=== PATIENT | male | born 1960 | race Caucasian/White ===

== ENCOUNTER → 2016-10-27 | Outpatient (CLI) | payer BC, OTHER ==
[~2016-10-27] MED LIST: DOXA1TAB71 PO; NORCOTAB PO; PROT1TAB2 PO; SIMV40TA2 PO
--- NOTE | 2016-10-27 14:46 | REP ---
LEFT FOOT, FOUR VIEWS: HISTORY: Contusion. There is no acute fracture or dislocation. The joint spaces are normal in appearance. IMPRESSION: There is no acute fracture or dislocation. Signed by Bo Bruce MD 10/27/2016 03:01 P
== END ==
LOC: M WUC 13:34
PROVIDERS: ATTEND Physician Assistant
DX: S90.32XA Contusion of left foot, initial encounter (principal); X58.XXXA Exposure to other specified factors, initial encounter; Y92.89 Other specified places as the place of occurrence of the external cause; Y93.89 Activity, other specified; Y99.8 Other external cause status

== ENCOUNTER → 2016-11-09 | Outpatient (CLI) | payer BC, OTHER ==
[2016-11-09 08:36] LABS: MEAN CORPUSCULAR HGB CONC 33.7 g/dl (32.0-36.5); MEAN CORPUSCULAR VOLUME 88.9 fl (80.0-96.0); RED CELL DISTRIBUTION WIDTH 12.7 % (11.5-14.5); WHITE BLOOD COUNT 6.5 K/mm3 (4.0-10.0)
[2016-11-09 09:16] LABS: ALBUMIN 3.8 GM/DL (3.2-5.2); ALBUMIN/GLOBULIN RATIO 1.12 (1.00-1.93); ALKALINE PHOSPHATASE 81 U/L (45-117); ALT/SGPT 42 U/L (12-78); ANION GAP 7 MEQ/L (8-16); AST/SGOT 17 U/L (15-37); BILIRUBIN,TOTAL 0.4 MG/DL (0.2-1.0); BLOOD UREA NITROGEN 16 MG/DL (7-18); CALCIUM LEVEL 9.2 MG/DL (8.5-10.1); CARBON DIOXIDE LEVEL 30 MEQ/L (21-32); CHLORIDE LEVEL 106 MEQ/L (98-107); CHOLESTEROL LEVEL 154 MG/DL (<200); CREATININE FOR GFR 1.02 MG/DL (0.70-1.30); GLOMERULAR FILTRATION RATE > 60.0 (>56); GLUCOSE, FASTING 104 MG/DL (70-105); POTASSIUM SERUM 4.3 MEQ/L (3.5-5.1); SODIUM LEVEL 143 MEQ/L (136-145); TOTAL PROTEIN 7.2 GM/DL (6.4-8.2); TRIGLYCERIDES LEVEL 156 MG/DL (<150)
--- NOTE | 2016-11-09 11:12 | REP ---
Clinical: Hypertension and fatigue . Comparison: 06/16/2015 . Technique: PA and lateral. Findings: The mediastinum and cardiac silhouette are normal. The lung gonzalez are clear and without acute consolidation, effusion, or pneumothorax. The skeletal structures are intact and normal. Impression: 1. No acute cardiopulmonary process. Signed by Bruno King MD 11/09/2016 08:25 A
--- NOTE | 2016-11-09 16:43 | ECGEPIP ---
Stationary ECG Study [facility] Test Date: 2016-11-09 Pat Name: JOCELYNE CONWAY Department: Room: - Gender: M Steel Checker: [facility] : 1960 Requested By: Yanna Chou Order Number: [id number] Reading MD: Cesario Berger Measurements Intervals [place]ston Rate: 71 P: 22 VT: 175 QRS: 25 QRSD: 86 T: 32 QT: 376 QTc: 409 Interpretive Statements Normal sinus rhythm Normal EKG No significant change when compared to prior tracing of 06/16/2015 Electronically Signed On 11-09-2016 16:43:14 EDT by Cesario Berger
== END ==
LOC: M LAB 07:56
PROVIDERS: ATTEND Family Medicine
DX: I10 Essential (primary) hypertension (principal); R53.83 Other fatigue

== ENCOUNTER 2016-11-18 15:55 | Inpatient (IN) | payer BC, OTHER ==
[~2016-11-18] VITALS: Ht 185.4 cm; Wt 105.0 kg
[2016-11-18] MEDS ORDERED: PROT1TAB2 PO (16:11)
[2016-11-18] MEDS ORDERED: SIMV40TA2 PO (16:11)
[2016-11-18] MEDS ORDERED: MORPHINE 4 MG/ML 1ML SYRINGE IV PRN (16:15)
[2016-11-18] MEDS ORDERED: ONDANSETRON 4MG/2ML VIAL (J2405) IV ONE (16:15)
[2016-11-18] MEDS ORDERED: NS 1,000 ML IV ONE (16:15)
[2016-11-18] MEDS ORDERED: ISOVUE-370 76% 100ML VIAL (Q9967) As Ordered ONE (16:16)
[2016-11-18 16:20] LABS: VENOUS BASE EXCESS -2.7 (-2.0-2.0); VENOUS O2 SATURATION 88.2 % (60.0-80.0); VENOUS PARTIAL PRESSURE CO2 42.1 mmHg (38.0-50.0); VENOUS PARTIAL PRESSURE O2 57.1 mmHg (30.0-50.0); VENOUS TOTAL CO2 24.1 MEQ/L (24.0-28.0)
[2016-11-18 16:22] LABS: BASO # 0.1 K/mm3 (0.0-0.2); BASO % 0.4 % (0.0-1.0); EOS # 0.4 K/mm3 (0.0-0.50); EOS % 2.6 % (0.0-3.0); LARGE UNSTAINED CELL # 0.2 K/mm3 (0.0-0.4); LARGE UNSTAINED CELL % 1.5 % (0.0-4.0); LYMPH # 3.8 K/mm3 (1.5-4.5); LYMPH % 24.3 % (24.0-44.0); MEAN CORPUSCULAR HGB CONC 33.9 g/dl (32.0-36.5); MEAN CORPUSCULAR VOLUME 88.4 fl (80.0-96.0); MONO # 0.7 K/mm3 (0.0-0.8); MONO % 4.6 % (0.0-5.0); NEUTROPHILS % 66.7 % (36.0-66.0); PLATELET COUNT, AUTOMATED 282 k/mm3 (150-450); RED CELL DISTRIBUTION WIDTH 12.8 % (11.5-14.5); WHITE BLOOD COUNT 14.9 K/mm3 (4.0-10.0)
[2016-11-18 16:33] LABS: INR 0.95
[2016-11-18 16:51] LABS: ALBUMIN 3.2 GM/DL (3.2-5.2); ALBUMIN/GLOBULIN RATIO 1.14 (1.00-1.93); ALKALINE PHOSPHATASE 63 U/L (45-117); ALT/SGPT 50 U/L (12-78); AMYLASE 80 U/L (25-115); ANION GAP 12 MEQ/L (8-16); AST/SGOT 38 U/L (15-37); BILIRUBIN,DIRECT 0.1 MG/DL (0.0-0.2); BILIRUBIN,TOTAL 0.5 MG/DL (0.2-1.0); BLOOD UREA NITROGEN 16 MG/DL (7-18); CALCIUM LEVEL 8.1 MG/DL (8.5-10.1); CARBON DIOXIDE LEVEL 25 MEQ/L (21-32); CHLORIDE LEVEL 108 MEQ/L (98-107); CREATININE FOR GFR 1.02 MG/DL (0.70-1.30); GLOMERULAR FILTRATION RATE > 60.0 (>56); GLUCOSE, FASTING 125 MG/DL (70-105); POTASSIUM SERUM 3.7 MEQ/L (3.5-5.1); SODIUM LEVEL 145 MEQ/L (136-145)
[2016-11-18] MEDS ORDERED: ADACEL/BOOSTRIX VACCINE (DIPHTH/PERTUSS/ACELL/TETANUS)0.5ML SYR (90715) IM ONE (17:15)
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
[2016-11-18 17:46] LABS: METHADONE URINE NEGATIVE (NEGATIVE)
[2016-11-18] MEDS ORDERED: NS 1,000 ML IV SCH (18:00)
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
[2016-11-18] MEDS ORDERED: ceFAZolin 1GM INJ (J0690) As Ordered ONE (18:18)
[2016-11-18] MEDS ORDERED: METHYLENE BLUE 0.5% (5MG/ML) 10 ML AMP (PROVAYBLUE)(Q9968 PER 1MG) As Ordered ONE (18:19)
[2016-11-18] MEDS ORDERED: HEPARIN SOD (PORCINE) 5000 UNITS/ML VIAL As Ordered ONE (18:19)
[2016-11-18] MEDS ORDERED: LIDOCAINE 1% SDV INJ 30 ML VIAL As Ordered ONE (19:09)
[2016-11-18] MEDS ORDERED: BUPIVACAINE HCL 0.5% 30 ML VIAL As Ordered ONE (19:09)
[2016-11-18] MEDS ORDERED: ISOVUE-300 61% 50ML VIAL (Q9967) As Ordered ONE ×2 (19:10→19:52)
[2016-11-18] MEDS ORDERED: DOXA1TAB71 PO (19:31)
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
[2016-11-18] MEDS ORDERED: ceFAZolin 2 GM/D5W 50 ML IV BAG (J0690) As Ordered ONE (19:48)
[2016-11-18] MEDS ORDERED: MIDAZOLAM INJ 2 MG/2 ML VIAL (J2250) As Ordered ONE (20:34)
[2016-11-18] MEDS ORDERED: ESMOLOL INJ 100MG/10ML VIAL As Ordered ONE (20:34)
[2016-11-18] MEDS ORDERED: fentaNYL 100 MCG/2 ML INJECTION (J3010) As Ordered ONE ×2 (20:34→21:36)
[2016-11-18] MEDS ORDERED: LIDOCAINE 2% INJ 100 MG/5 ML SDV (FOR ANES.) As Ordered ONE (20:34)
[2016-11-18] MEDS ORDERED: PROPOFOL 200 MG/20 ML VIAL As Ordered ONE (20:35)
[2016-11-18] MEDS ORDERED: CHLORHEXIDINE GLUCONATE 0.12 % 15ML UDC (PERIDEX ORAL RINSE) MT SCH (21:00)
[2016-11-18] MEDS ORDERED: MORPHINE 1MG/ML IN 0.9% NACL 100ML IV BAG As Ordered ONE ×2 (21:18→21:49)
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
[2016-11-18] MEDS: fentaNYL 100 MCG/2 ML INJECTION (J3010) IV PRN ×4 (21:38→21:55)
--- NOTE | 2016-11-18 21:38 | IPNPDOC ---
Text Note Date of Service The patient was seen on 11/18/16. NOTE Patient was seen in the OR after successful endovascular stent placement on traumatic disruption of his descending aorta. He remained stable throughout the procedure. A left chest tube (32 F) was placed on his left chest 5th ICS directed towards posterior apex. Initial drainage of 110 mLs of blood, and not much after. This is placed to suction. PLANS: Patient will be admitted to the ICU for monitoring, pain control. will call to trauma orthopedic at [facility] tomorrow for referral for the comminuted scapular fracture. Deep breathing exercise, aggressive pulmonary toilet for the rib fractures. DVT prophylaxis. VS,Fishbone, I+O VS, Fishbone, I+O Laboratory Tests 11/18/16 16:11 Red Blood Count 4.71, Mean Corpuscular Volume 88.4, Mean Corpuscular Hemoglobin 30.0, Mean Corpuscular Hemoglobin Concent 33.9, Red Cell Distribution Width 12.8 , Neutrophils (%) (Auto) 66.7 H, Lymphocytes (%) (Auto) 24.3, Monocytes (%) ( Auto) 4.6, Eosinophils (%) (Auto) 2.6, Basophils (%) (Auto) 0.4, Neutrophils # ( Auto) 10.0 H, Lymphocytes # (Auto) 3.8, Monocytes # (Auto) 0.7, Eosinophils # ( Auto) 0.4, Basophils # (Auto) 0.1 Vital Signs Date Time Temp Pulse Resp B/P (MAP) Pulse Ox O2 Delivery O2 Flow Rate FiO2 11/18/16 21:20 96.7 103 16 107/47 (33) 94 Nasal Cannula 3 OTF CANO MD Nov 18, 2016 21:38
[2016-11-18 21:50] LABS: ABG BASE EXCESS -5.8 (-2.0-2.0); ABG HCO3 21.6 MEQ/L (22.0-26.0); ABG PARTIAL PRESSURE O2 70.8 mmHg (75.0-100.0); ABG STANDARD HCO3 19.7 MEQ/L (22.0-26.0); ABG TOTAL CO2 23.2 MEQ/L (22.0-29.0); ABG pH (ARTERIAL) 7.254 UNITS (7.350-7.450)
[2016-11-18 21:51] LABS: MEAN CORPUSCULAR HEMOGLOBIN 30.8 pg (27.0-33.0); MEAN CORPUSCULAR VOLUME 87.9 fl (80.0-96.0); RED CELL DISTRIBUTION WIDTH 12.6 % (11.5-14.5)
[2016-11-18] MEDS ORDERED: METOCLOPRAMIDE INJ 10MG/2ML VIAL (J2765) IV PRN (22:00)
[2016-11-18] MEDS ORDERED: NALOXONE INJ 0.4 MG/1 ML VIAL (J2310) IV PRN (22:00)
[2016-11-18] MEDS ORDERED: PERCOCET 5MG/325MG TAB PO PRN (22:00)
[2016-11-18] MEDS ORDERED: EPIDURAL/PCA KEYS XX PRN (22:00)
[2016-11-18] MEDS ORDERED: diphenhydrAMINE INJ 50MG/ML VIAL (J1200) IV PRN (22:00)
[2016-11-18] MEDS ORDERED: MORPHINE 1MG/ML IN 0.9% NACL 100ML IV BAG IV PRN (22:00)
[2016-11-18] MEDS ORDERED: LR 1,000 ML IV SCH (22:00)
[2016-11-18] MEDS ORDERED: NALBUPHINE HCL 10 MG/ML AMP (J2300) IV PRN (22:00)
[2016-11-18] MEDS ORDERED: MEPERIDINE INJ 25 MG/ML VIAL (J2175) IV PRN (22:00)
[2016-11-18] MEDS ORDERED: ONDANSETRON 4MG/2ML VIAL (J2405) IV PRN ×2 (22:00)
[2016-11-18 23:13] VITALS: BP_SYST 130; BP_SYST 98; BP_DIAS 52
[2016-11-18 23:33] VITALS: BP_SYST 101; BP_SYST 134; BP_DIAS 54; BP_DIAS 70
[2016-11-18] MEDS: LR 1,000 ML IV SCH (23:37)
[2016-11-19] VITALS (31 sets, daily range): BP systolic 88–177; BP diastolic 51–92
--- NOTE | 2016-11-19 01:14 | REP ---
Clinical: Trauma. Status post chest tube. Comparison: 11/18/2016 at 05:22 p.m. Findings: Left-sided chest tube overlying the left apex. No obvious pneumothorax. The patient is status post aortic stenting for traumatic dissection. Mediastinal widening and hematoma cannot be excluded. Bilateral infiltrates (left greater than right) consistent with contusions and atelectasis related to trauma. Left clavicle, scapula and multiple left rib fractures are identified. Small amount of subcutaneous emphysema along the left lateral chest wall. Impression: 1. Left-sided chest tube with tip overlying the apex. 2. Status post aortic stenting. 3. Mediastinal widening, bilateral consolidation/contusions (left greater than right), left-sided rib, clavicle, and scapular fractures. Signed by Bruno King MD 11/19/2016 01:06 A
[2016-11-19 05:52] LABS: MEAN CORPUSCULAR HEMOGLOBIN 30.1 pg (27.0-33.0); MEAN CORPUSCULAR VOLUME 88.7 fl (80.0-96.0); RED CELL DISTRIBUTION WIDTH 12.9 % (11.5-14.5); WHITE BLOOD COUNT 11.3 K/mm3 (4.0-10.0)
[2016-11-19 06:08] LABS: ANION GAP 8 MEQ/L (8-16); BLOOD UREA NITROGEN 24 MG/DL (7-18); CALCIUM LEVEL 7.8 MG/DL (8.5-10.1); CARBON DIOXIDE LEVEL 24 MEQ/L (21-32); CHLORIDE LEVEL 110 MEQ/L (98-107); CREATININE FOR GFR 1.25 MG/DL (0.70-1.30); GLOMERULAR FILTRATION RATE > 60.0 (>56); GLUCOSE, FASTING 177 MG/DL (70-105); POTASSIUM SERUM 4.8 MEQ/L (3.5-5.1); SODIUM LEVEL 142 MEQ/L (136-145)
--- NOTE | 2016-11-19 07:43 | REP ---
Portable chest, single AP view, the patient semi upright, 06:53 a.m., 11/19/2016: Comparison is 11/18/2016 and 09:57 p.m.. The left chest tube and thoracic aortic stent are unchanged. There is subcutaneous emphysema along the left lateral chest wall, not significantly changed. There is atelectasis inferiorly in the left lung. This has improved. Left ribs, clavicle and scapular fractures are again identified. There is minor discoid atelectasis in the right parahilar zone. The right lung is otherwise clear. Cardiac size is normal. There is no pneumothorax. There is gaseous distension of the stomach beneath the left hemidiaphragm. This is unchanged. Impression: No significant interval change. Signed by Sridhar Waterman MD 11/19/2016 07:34 A
--- NOTE | 2016-11-19 08:02 | ECGEPIP ---
Stationary ECG Study [facility] - ED Test Date: 2016-11-18 Pat Name: JOCELYNE CONWAY Department: Room: - Gender: M Cia Agent: isabel : [id number] Requested By: Ilana Bowers Order Number: [id number] Reading MD: Jimmie Rushing Measurements Intervals [place] Rate: 71 P: 45 OR: 189 QRS: 21 QRSD: 86 T: 126 QT: 381 QTc: 415 Interpretive Statements SINUS RHYTHM BASELINE ARTIFACT AFFECTS INTERPRETATION Electronically Signed On 11-19-2016 8:02:10 EDT by Jimmie Rushing
--- NOTE | 2016-11-19 08:26 | REP ---
Intraoperative fluoroscopic view for endovascular stent placement: A single AP view is performed during thoracic aortic endovascular stent placement. The procedure is performed by the surgeon, Dr. Nayak. Fluoroscopic imaging time is 1 minute 9 seconds. Fluoroscopic images are performed with last image hold technology and require no additional radiation. Signed by Sridhar Waterman MD 11/19/2016 08:17 A
[2016-11-19] MEDS ORDERED: ENOXAPARIN 40 MG/0.4 ML SYRINGE (J1650) SC SCH (09:00)
[2016-11-19] MEDS: PANTOPRAZOLE 40MG INJ (PROTONIX) (C9113) IV SCH (09:09)
[2016-11-19] MEDS: BACITRACIN OINT 30GM TOP SCH (09:10)
[2016-11-19] MEDS: LR 1,000 ML IV SCH ×2 (09:11→18:08)
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
[2016-11-19] MEDS: ENOXAPARIN 40 MG/0.4 ML SYRINGE (J1650) SC SCH (11:22)
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
[2016-11-20] VITALS (22 sets, daily range): BP systolic 118–175; BP diastolic 62–116
[2016-11-20] MEDS ORDERED: hydrALAZINE INJ 20 MG/ML VIAL IV SCH (01:00)
[2016-11-20] MEDS: LR 1,000 ML IV SCH ×3 (02:21→22:35)
[2016-11-20 05:00] LABS: MEAN CORPUSCULAR HEMOGLOBIN 30.8 pg (27.0-33.0); MEAN CORPUSCULAR HGB CONC 35.3 g/dl (32.0-36.5); MEAN CORPUSCULAR VOLUME 87.2 fl (80.0-96.0); RED CELL DISTRIBUTION WIDTH 12.5 % (11.5-14.5)
[2016-11-20 05:42] LABS: ANION GAP 6 MEQ/L (8-16); BLOOD UREA NITROGEN 18 MG/DL (7-18); CALCIUM LEVEL 8.3 MG/DL (8.5-10.1); CARBON DIOXIDE LEVEL 29 MEQ/L (21-32); CHLORIDE LEVEL 104 MEQ/L (98-107); CREATININE FOR GFR 0.72 MG/DL (0.70-1.30); GLOMERULAR FILTRATION RATE > 60.0 (>56); GLUCOSE, FASTING 152 MG/DL (70-105); POTASSIUM SERUM 4.3 MEQ/L (3.5-5.1); SODIUM LEVEL 139 MEQ/L (136-145)
--- NOTE | 2016-11-20 08:19 | REP ---
Portable chest, 06:48 a.m., single AP view, the patient semi upright: Comparison 11/19/2016. The patient has known fractures of the left ribs, clavicle and scapula. Left chest tube and aortic stent are unchanged. There is no pneumothorax. There is atelectasis inferiorly in the left lung, unchanged. There is right perihilar atelectasis, this has has slightly increased. Cardiac size is normal. Gaseous distension of the stomach is again noted. Impression: The right perihilar atelectasis has increased slightly. Otherwise, there is no significant change. Signed by Sridhar Waterman MD 11/20/2016 08:11 A
[2016-11-20] MEDS: PANTOPRAZOLE 40MG INJ (PROTONIX) (C9113) IV SCH (09:31)
[2016-11-20] MEDS: ENOXAPARIN 40 MG/0.4 ML SYRINGE (J1650) SC SCH (09:31)
[2016-11-20] MEDS: KETOROLAC 30 MG/ML VIAL (J1885) IV SCH ×3 (09:32→20:54)
[2016-11-20] MEDS: BACITRACIN OINT 30GM TOP SCH (09:32)
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
[2016-11-20] MEDS: amLODIPine 5 MG TAB PO SCH (14:13)
[2016-11-21] VITALS (15 sets, daily range): BP systolic 142–180; BP diastolic 63–91
[2016-11-21] MEDS ORDERED: MOM 30ML SUSPENSION UDC PO ONE ×2 (01:00→08:00)
[2016-11-21] MEDS ORDERED: MOM 30ML SUSPENSION UDC As Ordered ONE (01:20)
[2016-11-21] MEDS: KETOROLAC 30 MG/ML VIAL (J1885) IV SCH ×4 (02:27→20:32)
[2016-11-21] MEDS: SENOKOT S TAB PO SCH ×3 (02:27→20:32)
[2016-11-21 05:09] LABS: MEAN CORPUSCULAR HEMOGLOBIN 31.1 pg (27.0-33.0); MEAN CORPUSCULAR HGB CONC 36.4 g/dl (32.0-36.5); MEAN CORPUSCULAR VOLUME 85.4 fl (80.0-96.0); RED CELL DISTRIBUTION WIDTH 12.4 % (11.5-14.5)
[2016-11-21 05:25] LABS: ANION GAP 5 MEQ/L (8-16); BLOOD UREA NITROGEN 25 MG/DL (7-18); CALCIUM LEVEL 8.3 MG/DL (8.5-10.1); CARBON DIOXIDE LEVEL 31 MEQ/L (21-32); CHLORIDE LEVEL 100 MEQ/L (98-107); CREATININE FOR GFR 0.78 MG/DL (0.70-1.30); GLOMERULAR FILTRATION RATE > 60.0 (>56); GLUCOSE, FASTING 126 MG/DL (70-105); POTASSIUM SERUM 3.8 MEQ/L (3.5-5.1); SODIUM LEVEL 136 MEQ/L (136-145)
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
[2016-11-21] MEDS ORDERED: BISACODYL 10 MG SUPP PR ONE (08:00)
[2016-11-21] MEDS: LR 1,000 ML IV SCH ×2 (08:13→19:26)
[2016-11-21] MEDS: BACITRACIN OINT 30GM TOP SCH (09:00)
[2016-11-21] MEDS ORDERED: ISOVUE-370 76% 100ML VIAL (Q9967) As Ordered ONE (09:20)
[2016-11-21] MEDS: ENOXAPARIN 40 MG/0.4 ML SYRINGE (J1650) SC SCH (09:32)
[2016-11-21] MEDS: PANTOPRAZOLE 40MG INJ (PROTONIX) (C9113) IV SCH (09:34)
[2016-11-21] MEDS: amLODIPine 5 MG TAB PO SCH (09:38)
--- NOTE | 2016-11-21 14:06 | REP ---
CT of the chest with IV contrast: Comparison is 11/18/2016. Multiple left rib fractures, left clavicle fracture and left scapular fracture are again identified. There has been interval placement of aortic endovascular stent. There are bilateral pleural effusions. There is a left thoracotomy tube with the tip in satisfactory location in the pleural space posteromedial superiorly. There is a small pneumothorax anteriorly in the left hemithorax anterior to the heart. There is no pneumopericardium. There is circumferential subcutaneous emphysema of the left hemithorax l. There are focal zones of atelectasis in the lung gonzalez bilaterally. There is no periaortic or mediastinal hematoma. Cardiac size is normal. There is no pericardial effusion. Impression: There is no pneumopericardium. There is a small left pneumothorax anterior to the heart with the patient supine on the scanning table. There are small bilateral pleural effusions. There is subcutaneous emphysema circumferentially in the left hemithorax. Left thoracotomy tube, aortic endovascular stent and fractures of multiple left ribs, left clavicle and scapula are again identified. Signed by Sridhar Waterman MD 11/21/2016 01:58 P
[2016-11-22] VITALS: BP 146/88
[2016-11-22] MEDS: KETOROLAC 30 MG/ML VIAL (J1885) IV SCH ×4 (02:43→20:50)
[2016-11-22 04:00] VITALS: BP 147/77
[2016-11-22] MEDS: LR 1,000 ML IV SCH (04:52)
[2016-11-22 05:03] LABS: MEAN CORPUSCULAR HEMOGLOBIN 30.2 pg (27.0-33.0); MEAN CORPUSCULAR HGB CONC 35.1 g/dl (32.0-36.5); MEAN CORPUSCULAR VOLUME 86.1 fl (80.0-96.0); RED CELL DISTRIBUTION WIDTH 12.3 % (11.5-14.5); WHITE BLOOD COUNT 4.8 K/mm3 (4.0-10.0)
[2016-11-22 05:26] LABS: ANION GAP 7 MEQ/L (8-16); BLOOD UREA NITROGEN 20 MG/DL (7-18); CALCIUM LEVEL 8.1 MG/DL (8.5-10.1); CARBON DIOXIDE LEVEL 32 MEQ/L (21-32); CHLORIDE LEVEL 96 MEQ/L (98-107); CREATININE FOR GFR 0.57 MG/DL (0.70-1.30); GLOMERULAR FILTRATION RATE > 60.0 (>56); GLUCOSE, FASTING 137 MG/DL (70-105); POTASSIUM SERUM 3.6 MEQ/L (3.5-5.1); SODIUM LEVEL 135 MEQ/L (136-145)
[2016-11-22 08:00] VITALS: BP 160/86
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
[2016-11-22] MEDS: amLODIPine 5 MG TAB PO SCH (08:54)
[2016-11-22] MEDS: SENOKOT S TAB PO SCH ×2 (08:55→20:48)
[2016-11-22] MEDS: PANTOPRAZOLE 40MG TAB (PROTONIX) PO SCH (08:55)
[2016-11-22] MEDS: ENOXAPARIN 40 MG/0.4 ML SYRINGE (J1650) SC SCH (08:55)
[2016-11-22] MEDS: BACITRACIN OINT 30GM TOP SCH (08:56)
[2016-11-22] MEDS ORDERED: NS 1,000 ML IV SCH (09:00)
[2016-11-22] MEDS: NORCO, ANEXSIA 5/325MG TABLET (HYDROcodone/ACETAMINOPHEN) PO PRN ×3 (09:01→20:49)
--- NOTE | 2016-11-22 09:04 | REP ---
PA and lateral chest: Comparisons are 11/21/2016 and 06/1969 and 11/20/2016 at 06:48 a.m. The left thoracotomy tube has been removed. There is no left pneumothorax. There is atelectasis inferiorly in the left lung, unchanged. This atelectasis in the left upper lobe that has increased. The aortic stent is unchanged. There is atelectasis in the right upper lobe and the right parahilar zone. This has increased. There is no right pneumothorax. Cardiac size is normal. There is a small volume of subcutaneous emphysema along the left lateral chest wall. There is gastric distension with a large air-fluid level in the gastric fundus beneath the left hemidiaphragm. Moderately dilated bowel loops are noted in the visualized upper abdomen. Signed by Sridhar Waterman MD 11/22/2016 08:56 A
[2016-11-22] MEDS: ALVIMOPAN 12 MG CAPSULE (ENTEREG) PO SCH ×2 (09:53→20:48)
[2016-11-22 12:00] VITALS: BP 168/86
[2016-11-22] MEDS: KCL 40MEQ IN D5/0.45NS 1000ML 1,000 ML IV SCH ×2 (14:38→23:55)
[2016-11-22] MEDS: TAMSULOSIN 0.4 MG CAP PO SCH (14:39)
[2016-11-22 16:00] VITALS: BP 126/62
[2016-11-22 20:00] VITALS: BP 140/74
[2016-11-22] MEDS: DOXAZOSIN MESYLATE 1 MG TAB PO SCH (20:48)
[2016-11-23] VITALS: BP 128/67
[2016-11-23] MEDS: KETOROLAC 30 MG/ML VIAL (J1885) IV SCH ×4 (02:55→20:42)
[2016-11-23] MEDS: NORCO, ANEXSIA 5/325MG TABLET (HYDROcodone/ACETAMINOPHEN) PO PRN ×4 (02:56→22:57)
[2016-11-23 04:00] VITALS: BP 136/76
[2016-11-23 04:53] LABS: MEAN CORPUSCULAR HEMOGLOBIN 30.8 pg (27.0-33.0); MEAN CORPUSCULAR HGB CONC 35.9 g/dl (32.0-36.5); MEAN CORPUSCULAR VOLUME 85.8 fl (80.0-96.0); RED CELL DISTRIBUTION WIDTH 12.6 % (11.5-14.5); WHITE BLOOD COUNT 5.4 K/mm3 (4.0-10.0)
[2016-11-23 05:11] LABS: ANION GAP 5 MEQ/L (8-16); BLOOD UREA NITROGEN 22 MG/DL (7-18); CALCIUM LEVEL 7.8 MG/DL (8.5-10.1); CARBON DIOXIDE LEVEL 33 MEQ/L (21-32); CHLORIDE LEVEL 96 MEQ/L (98-107); CREATININE FOR GFR 0.74 MG/DL (0.70-1.30); GLOMERULAR FILTRATION RATE > 60.0 (>56); GLUCOSE, FASTING 130 MG/DL (70-105); POTASSIUM SERUM 3.4 MEQ/L (3.5-5.1); SODIUM LEVEL 134 MEQ/L (136-145)
[2016-11-23 08:00] VITALS: BP 160/85
[2016-11-23] MEDS: BACITRACIN OINT 30GM TOP SCH (09:00)
[2016-11-23] MEDS: KCL 40MEQ IN D5/0.45NS 1000ML 1,000 ML IV SCH ×2 (10:00→19:23)
[2016-11-23] MEDS: ENOXAPARIN 40 MG/0.4 ML SYRINGE (J1650) SC SCH (10:08)
[2016-11-23] MEDS: MOM 30ML SUSPENSION UDC PO SCH (10:08)
[2016-11-23] MEDS: amLODIPine 5 MG TAB PO SCH (10:09)
[2016-11-23] MEDS: PANTOPRAZOLE 40MG TAB (PROTONIX) PO SCH (10:09)
[2016-11-23] MEDS: TAMSULOSIN 0.4 MG CAP PO SCH (10:09)
[2016-11-23] MEDS: ALVIMOPAN 12 MG CAPSULE (ENTEREG) PO SCH ×2 (10:10→20:41)
[2016-11-23] MEDS: SENOKOT S TAB PO SCH ×2 (10:10→20:40)
[2016-11-23] MEDS ORDERED: MECLIZINE 12.5 MG TAB PO PRN (11:00)
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
[2016-11-23 12:00] VITALS: BP 132/61
[2016-11-23 16:00] VITALS: BP 145/71
[2016-11-23 20:00] VITALS: BP 149/67
[2016-11-23] MEDS: DOXAZOSIN MESYLATE 1 MG TAB PO SCH (20:41)
[2016-11-24] VITALS (7 sets, daily range): BP systolic 135–160; BP diastolic 67–81
[2016-11-24] MEDS: KETOROLAC 30 MG/ML VIAL (J1885) IV SCH ×4 (02:25→21:16)
[2016-11-24] MEDS: NORCO, ANEXSIA 5/325MG TABLET (HYDROcodone/ACETAMINOPHEN) PO PRN ×2 (05:03→15:45)
[2016-11-24] MEDS: KCL 40MEQ IN D5/0.45NS 1000ML 1,000 ML IV SCH ×2 (05:03→14:30)
[2016-11-24] MEDS: MOM 30ML SUSPENSION UDC PO SCH (09:53)
[2016-11-24] MEDS: amLODIPine 5 MG TAB PO SCH (09:53)
[2016-11-24] MEDS: SENOKOT S TAB PO SCH ×2 (09:53→21:11)
[2016-11-24] MEDS: TAMSULOSIN 0.4 MG CAP PO SCH (09:53)
[2016-11-24] MEDS: ALVIMOPAN 12 MG CAPSULE (ENTEREG) PO SCH ×2 (09:53→21:11)
[2016-11-24] MEDS: PANTOPRAZOLE 40MG TAB (PROTONIX) PO SCH (09:53)
[2016-11-24] MEDS: ENOXAPARIN 40 MG/0.4 ML SYRINGE (J1650) SC SCH (09:54)
[2016-11-24] MEDS: BACITRACIN OINT 30GM TOP SCH (09:55)
[2016-11-24] MEDS: SIMETHICONE 80 MG CHEW TAB PO SCH ×4 (10:58→21:13)
--- NOTE | 2016-11-24 12:07 | REP ---
ABDOMINAL SERIES: Supine and erect views of the abdomen demonstrate no evidence of free air. There is persistent moderate dilatation of small bowel loops in the abdomen similar to the prior study of 11/21/2016. An accompanying view of the chest demonstrates no pneumothorax. Bilateral parenchymal opacities are stable. Cardiomediastinal silhouette is unchanged. There is a nasogastric tube with sideport in the stomach. IMPRESSION: No significant change in moderate small bowel dilatation. Signed by Sridhar Redmond MD 11/24/2016 07:35 P
[2016-11-24] MEDS: AMINO AC/ELECTROLYTE/DEX/CALC 1,000 ML IV SCH ×2 (13:03→22:53)
[2016-11-24] MEDS: HumaLOG INSULIN (NovoLOG) PER UNIT SC SCH (18:00)
[2016-11-24] MEDS ORDERED: FAT EMULSION IV 20% 500 ML IV SCH (18:00)
[2016-11-24] MEDS: DOXAZOSIN MESYLATE 1 MG TAB PO SCH (21:11)
[2016-11-25] MEDS: HumaLOG INSULIN (NovoLOG) PER UNIT SC SCH ×4 (00:49→17:40)
[2016-11-25] MEDS: KETOROLAC 30 MG/ML VIAL (J1885) IV SCH (02:47)
[2016-11-25 07:30] VITALS: BP 160/94
[2016-11-25] MEDS: TAMSULOSIN 0.4 MG CAP PO SCH (09:21)
[2016-11-25] MEDS: MOM 30ML SUSPENSION UDC PO SCH (09:21)
[2016-11-25] MEDS: SENOKOT S TAB PO SCH ×2 (09:21→20:23)
[2016-11-25] MEDS: ALVIMOPAN 12 MG CAPSULE (ENTEREG) PO SCH ×2 (09:21→20:27)
[2016-11-25] MEDS: amLODIPine 5 MG TAB PO SCH (09:21)
[2016-11-25] MEDS: PANTOPRAZOLE 40MG TAB (PROTONIX) PO SCH (09:21)
[2016-11-25] MEDS: SIMETHICONE 80 MG CHEW TAB PO SCH ×4 (09:21→20:22)
[2016-11-25] MEDS: AMINO AC/ELECTROLYTE/DEX/CALC 1,000 ML IV SCH ×2 (09:22→17:40)
[2016-11-25] MEDS: ENOXAPARIN 40 MG/0.4 ML SYRINGE (J1650) SC SCH (09:22)
[2016-11-25] MEDS: BACITRACIN OINT 30GM TOP SCH (09:23)
[2016-11-25] MEDS: CETIRIZINE (ZyrTEC) 5 MG/5 ML UDC DYE FREE NG SCH (09:38)
[2016-11-25] MEDS: SODIUM CHLORIDE NASAL 0.65% SPRAY BTL (OCEAN) SCH ×3 (09:38→20:24)
[2016-11-25] MEDS: NORCO, ANEXSIA 5/325MG TABLET (HYDROcodone/ACETAMINOPHEN) PO PRN ×2 (10:45→20:22)
[2016-11-25 12:00] VITALS: BP 174/92
[2016-11-25] MEDS: hydrALAZINE INJ 20 MG/ML VIAL IV PRN (14:52)
[2016-11-25 16:00] VITALS: BP 168/63
[2016-11-25] MEDS: CEPACOL LOZENGE PO PRN ×3 (17:40→22:44)
[2016-11-25] MEDS ORDERED: FAT EMULSION IV 20% 500 ML IV SCH (18:00)
[2016-11-25 20:00] VITALS: BP 172/72
[2016-11-25] MEDS: DOXAZOSIN MESYLATE 1 MG TAB PO SCH (20:23)
[2016-11-26] VITALS (7 sets, daily range): BP systolic 144–167; BP diastolic 48–76
[2016-11-26] MEDS: HumaLOG INSULIN (NovoLOG) PER UNIT SC SCH ×3 (00:39→12:36)
[2016-11-26] MEDS: NORCO, ANEXSIA 5/325MG TABLET (HYDROcodone/ACETAMINOPHEN) PO PRN ×4 (02:44→21:04)
[2016-11-26] MEDS: CEPACOL LOZENGE PO PRN ×2 (03:37→10:37)
[2016-11-26] MEDS: AMINO AC/ELECTROLYTE/DEX/CALC 1,000 ML IV SCH ×2 (04:41→15:01)
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
[2016-11-26] MEDS: MOM 30ML SUSPENSION UDC PO SCH (10:21)
[2016-11-26] MEDS: ENOXAPARIN 40 MG/0.4 ML SYRINGE (J1650) SC SCH (10:22)
[2016-11-26] MEDS: PANTOPRAZOLE 40MG TAB (PROTONIX) PO SCH (10:22)
[2016-11-26] MEDS: SODIUM CHLORIDE NASAL 0.65% SPRAY BTL (OCEAN) SCH ×3 (10:22→21:07)
[2016-11-26] MEDS: SENOKOT S TAB PO SCH ×2 (10:22→21:06)
[2016-11-26] MEDS: TAMSULOSIN 0.4 MG CAP PO SCH (10:22)
[2016-11-26] MEDS: SIMETHICONE 80 MG CHEW TAB PO SCH ×4 (10:23→21:05)
[2016-11-26] MEDS: ALVIMOPAN 12 MG CAPSULE (ENTEREG) PO SCH ×2 (10:23→21:04)
[2016-11-26] MEDS: CETIRIZINE (ZyrTEC) 5 MG/5 ML UDC DYE FREE NG SCH (10:24)
[2016-11-26] MEDS: amLODIPine 5 MG TAB PO SCH (10:24)
[2016-11-26] MEDS: hydrALAZINE INJ 20 MG/ML VIAL IV PRN ×3 (10:37→23:28)
[2016-11-26] MEDS: BACITRACIN OINT 30GM TOP SCH (14:11)
[2016-11-26] MEDS: DOXAZOSIN MESYLATE 1 MG TAB PO SCH (21:07)
[2016-11-27] VITALS (7 sets, daily range): BP systolic 130–161; BP diastolic 42–83
[2016-11-27] MEDS: NORCO, ANEXSIA 5/325MG TABLET (HYDROcodone/ACETAMINOPHEN) PO PRN ×3 (04:32→18:35)
[2016-11-27] MEDS: CETIRIZINE (ZyrTEC) 5 MG/5 ML UDC DYE FREE NG SCH ×2 (09:00→10:16)
[2016-11-27] MEDS: SENOKOT S TAB PO SCH ×3 (09:00→20:36)
[2016-11-27] MEDS: BACITRACIN OINT 30GM TOP SCH (09:00)
[2016-11-27] MEDS: MOM 30ML SUSPENSION UDC PO SCH (09:00)
[2016-11-27] MEDS: ALVIMOPAN 12 MG CAPSULE (ENTEREG) PO SCH ×2 (10:16→20:26)
[2016-11-27] MEDS: TAMSULOSIN 0.4 MG CAP PO SCH (10:17)
[2016-11-27] MEDS: PANTOPRAZOLE 40MG TAB (PROTONIX) PO SCH (10:18)
[2016-11-27] MEDS: SIMETHICONE 80 MG CHEW TAB PO SCH ×4 (10:18→20:27)
[2016-11-27] MEDS: ENOXAPARIN 40 MG/0.4 ML SYRINGE (J1650) SC SCH (10:18)
[2016-11-27] MEDS: SODIUM CHLORIDE NASAL 0.65% SPRAY BTL (OCEAN) SCH (10:19)
[2016-11-27] MEDS: amLODIPine 5 MG TAB PO SCH (10:21)
[2016-11-27] MEDS: DOXAZOSIN MESYLATE 1 MG TAB PO SCH (20:26)
[2016-11-28] MEDS: NORCO, ANEXSIA 5/325MG TABLET (HYDROcodone/ACETAMINOPHEN) PO PRN ×4 (00:58→20:55)
[2016-11-28 06:00] VITALS: BP 138/65
[2016-11-28] MEDS: PANTOPRAZOLE 40MG TAB (PROTONIX) PO SCH (08:14)
[2016-11-28] MEDS: MOM 30ML SUSPENSION UDC PO SCH (08:15)
[2016-11-28] MEDS: SENOKOT S TAB PO SCH ×2 (08:15→20:55)
[2016-11-28] MEDS: amLODIPine 5 MG TAB PO SCH (08:15)
[2016-11-28] MEDS: ALVIMOPAN 12 MG CAPSULE (ENTEREG) PO SCH ×2 (08:15→20:55)
[2016-11-28] MEDS: TAMSULOSIN 0.4 MG CAP PO SCH (08:15)
[2016-11-28] MEDS: CETIRIZINE (ZyrTEC) 5 MG/5 ML UDC DYE FREE NG SCH (08:16)
[2016-11-28] MEDS: SIMETHICONE 80 MG CHEW TAB PO SCH ×4 (09:23→20:55)
[2016-11-28 14:00] VITALS: BP 140/76
[2016-11-28] MEDS: ENOXAPARIN 40 MG/0.4 ML SYRINGE (J1650) SC SCH (17:18)
[2016-11-28 21:00] VITALS: BP 146/75
[2016-11-28] MEDS: DOXAZOSIN MESYLATE 1 MG TAB PO SCH (21:00)
[2016-11-29] MEDS: NORCO, ANEXSIA 5/325MG TABLET (HYDROcodone/ACETAMINOPHEN) PO PRN ×4 (02:58→21:14)
[2016-11-29 06:00] VITALS: BP 132/68
[2016-11-29] MEDS: MOM 30ML SUSPENSION UDC PO SCH (09:00)
[2016-11-29] MEDS: CETIRIZINE (ZyrTEC) 5 MG/5 ML UDC DYE FREE NG SCH (09:00)
[2016-11-29] MEDS: TAMSULOSIN 0.4 MG CAP PO SCH (09:01)
[2016-11-29] MEDS: amLODIPine 5 MG TAB PO SCH (09:01)
[2016-11-29] MEDS: SIMETHICONE 80 MG CHEW TAB PO SCH ×4 (09:01→21:09)
[2016-11-29] MEDS: PANTOPRAZOLE 40MG TAB (PROTONIX) PO SCH (09:01)
[2016-11-29] MEDS: SENOKOT S TAB PO SCH ×2 (09:01→21:09)
[2016-11-29] MEDS: ENOXAPARIN 40 MG/0.4 ML SYRINGE (J1650) SC SCH (09:01)
[2016-11-29 12:00] VITALS: BP 135/68
[2016-11-29 14:50] VITALS: BP 140/61
[2016-11-29] MEDS: DOXAZOSIN MESYLATE 1 MG TAB PO SCH (21:09)
[2016-11-29 22:00] VITALS: BP 163/77
[2016-11-30 06:00] VITALS: BP 168/78
[2016-11-30] MEDS: CETIRIZINE (ZyrTEC) 5 MG/5 ML UDC DYE FREE NG SCH (09:00)
[2016-11-30] MEDS: SENOKOT S TAB PO SCH (09:05)
[2016-11-30] MEDS: ENOXAPARIN 40 MG/0.4 ML SYRINGE (J1650) SC SCH (09:05)
[2016-11-30] MEDS: MOM 30ML SUSPENSION UDC PO SCH (09:05)
[2016-11-30 09:06] VITALS: BP 168/78
[2016-11-30] MEDS: PANTOPRAZOLE 40MG TAB (PROTONIX) PO SCH (09:06)
[2016-11-30] MEDS: NORCO, ANEXSIA 5/325MG TABLET (HYDROcodone/ACETAMINOPHEN) PO PRN ×2 (09:06→17:43)
[2016-11-30] MEDS: SIMETHICONE 80 MG CHEW TAB PO SCH ×2 (09:06→13:46)
[2016-11-30] MEDS: TAMSULOSIN 0.4 MG CAP PO SCH (09:06)
[2016-11-30] MEDS: amLODIPine 5 MG TAB PO SCH (09:06)
[2016-11-30 14:00] VITALS: BP 162/88
[2016-11-30] MEDS ORDERED: NORCOTAB PO (15:35)
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
== END 2016-11-30 18:50 | disposition home or self-care (01) | DRG 173 ==
LOC: M ED 15:55 → EDBD 15:55 → M ED INP 18:58 → M ICU 23:15 → M PCU 11-24 15:13 → M MS4PR 11-27 21:39 → M MS5PR 11-29 14:50
PROVIDERS: ADMIT Surgery; ATTEND Surgery
PROC: 0W9B30Z Drainage of Left Pleural Cavity with Drainage Device, Percutaneous Approach (ICD-10-PCS; 2016-11-19)
PROC: 02VW0DZ Restriction of Thoracic Aorta, Descending with Intraluminal Device, Open Approach (ICD-10-PCS; principal; 2016-11-20)
PROC: 02V Heart and Great Vessels, Restriction (ICD-10-PCS; 2016-11-20)
PROC: 0D9670Z Drainage of Stomach with Drainage Device, Via Natural or Artificial Opening (ICD-10-PCS; 2016-11-22)
DX: I71.01 Dissection of thoracic aorta (principal); S27.2XXA Traumatic hemopneumothorax, initial encounter; S27.329A Contusion of lung, unspecified, initial encounter; S36.030A Superficial (capsular) laceration of spleen, initial encounter; S37.042A Minor laceration of left kidney, initial encounter; S22.42XA Multiple fractures of ribs, left side, initial encounter for closed fracture; S42.102A Fracture of unspecified part of scapula, left shoulder, initial encounter for closed fracture; S42.022A Displaced fracture of shaft of left clavicle, initial encounter for closed fracture; V23.4XXA Motorcycle driver injured in collision with car, pick-up truck or van in traffic accident, initial encounter; Y92.410 Unspecified street and highway as the place of occurrence of the external cause; Y93.89 Activity, other specified; Y99.9 Unspecified external cause status; Z79.899 Other long term (current) drug therapy; K91.3 Postprocedural intestinal obstruction

== ENCOUNTER → 2017-05-15 | Outpatient (CLI) | payer OTHER ==
[~2017-05-15] MED LIST changes: +CONRAY-43 43% 50ML VIAL (Q9960) As Ordered; -DOXA1TAB71 PO; -NORCOTAB PO; -PROT1TAB2 PO; -SIMV40TA2 PO
== END ==
LOC: M RADPRO 14:10
DX: M25.712 Osteophyte, left shoulder (principal); Z95.5 Presence of coronary angioplasty implant and graft
CPT/HCPCS: 23350

== ENCOUNTER → 2017-07-17 | Outpatient (REF) | payer OTHER ==
[2017-07-17 13:35] LABS: HEMATOCRIT 40.9 % (42.0-52.0); HEMOGLOBIN 13.9 g/dl (13.5-17.5); MEAN CORPUSCULAR HEMOGLOBIN 29.4 pg (27.0-33.0); MEAN CORPUSCULAR VOLUME 86.5 fl (80.0-96.0); PLATELET COUNT, AUTOMATED 256 10^3/uL (150-450); RED BLOOD COUNT 4.73 10^6/uL (4.30-6.10); RED CELL DISTRIBUTION WIDTH 12.4 % (11.5-14.5); WHITE BLOOD COUNT 6.3 10^3/uL (4.0-10.0)
[2017-07-17 13:49] LABS: INR 0.93; PROTHROMBIN TIME 12.5 SECONDS (12.4-14.5)
[2017-07-17 14:00] LABS: ANION GAP 6 MEQ/L (8-16); BLOOD UREA NITROGEN 14 MG/DL (7-18); CALCIUM LEVEL 8.8 MG/DL (8.5-10.1); CARBON DIOXIDE LEVEL 28 MEQ/L (21-32); CHLORIDE LEVEL 108 MEQ/L (98-107); CREATININE FOR GFR 0.96 MG/DL (0.70-1.30); GLOMERULAR FILTRATION RATE > 60.0 (>56); GLUCOSE, FASTING 78 MG/DL (70-100); POTASSIUM SERUM 3.8 MEQ/L (3.5-5.1); SODIUM LEVEL 142 MEQ/L (136-145)
== END ==
LOC: M SFHCPLAZ 10:57
DX: Z01.818 Encounter for other preprocedural examination (principal)
CPT/HCPCS: 80048

== ENCOUNTER 2017-07-22 09:57 | Day surgery (SDC) | payer OTHER, BC ==
[2017-07-22] MEDS ORDERED: EPINEPHrine INJ 1 MG/ML 1ML AMP (09:58)
[2017-07-22] MEDS ORDERED: ROPIvacaine 0.5% 30 ML INJECTION (J2795 PER 1MG) (09:58)
[2017-07-22] MEDS ORDERED: dexameTHASONE 10 MG/1 ML VIAL PRES.FREE (J1100) (09:58)
[2017-07-22] MEDS ORDERED: LR 1,000 ML IV ×2 (10:00→16:45)
[2017-07-22] MEDS ORDERED: LIDOCAINE 1% SDV 5 ML VIAL SQ (10:15)
[2017-07-22] MEDS ORDERED: fentaNYL 100 MCG/2 ML INJECTION (J3010) As Ordered ×2 (11:55→13:32)
[2017-07-22] MEDS ORDERED: PROPOFOL 200 MG/20 ML VIAL As Ordered (11:55)
[2017-07-22] MEDS ORDERED: ROCURONIUM BROMIDE 50 MG/5 ML VIAL As Ordered (11:55)
[2017-07-22] MEDS ORDERED: LIDOCAINE 2% INJ 100 MG/5 ML SDV (FOR ANES.) As Ordered (11:55)
[2017-07-22] MEDS ORDERED: MIDAZOLAM INJ 2 MG/2 ML VIAL (J2250) As Ordered (13:32)
[2017-07-22] MEDS: MIDAZOLAM INJ 2 MG/2 ML VIAL (J2250) IV (13:50)
[2017-07-22] MEDS: fentaNYL 100 MCG/2 ML INJECTION (J3010) IV (13:50)
[2017-07-22] MEDS ORDERED: ePHEDrine SULFATE 25 MG/5 ML(5MG/ML) SYRINGE As Ordered ×2 (14:39→15:16)
[2017-07-22] MEDS ORDERED: METOCLOPRAMIDE INJ 10MG/2ML VIAL (J2765) As Ordered (14:40)
[2017-07-22] MEDS ORDERED: PHENYLephrine HCL 500 MCG/5 ML (100MCG/ML) SYRINGE (J2370) As Ordered (14:50)
[2017-07-22] MEDS ORDERED: ONDANSETRON 4MG/2ML VIAL (J2405) As Ordered (14:50)
[2017-07-22] MEDS ORDERED: GLYCOPYRROLATE INJ 0.2 MG/ML 2 ML VIAL As Ordered ×2 (15:00→15:27)
[2017-07-22] MEDS ORDERED: NEOSTIGMINE 10 MG/10 ML VIAL (J2710) As Ordered ×2 (15:00)
[2017-07-22] MEDS: EPINEPHrine 1MG/ML INJ 30ML MD-VIAL As Ordered (15:07)
[2017-07-22] MEDS: LR 1,000 ML IV (16:09)
[2017-07-22] MEDS ORDERED: PERCOCET 5MG/325MG TAB PO (16:30)
[2017-07-22] MEDS ORDERED: ONDANSETRON 4MG/2ML VIAL (J2405) IV (16:30)
[2017-07-22] MEDS ORDERED: METOCLOPRAMIDE INJ 10MG/2ML VIAL (J2765) IV (16:30)
[2017-07-22] MEDS ORDERED: fentaNYL 100 MCG/2 ML INJECTION (J3010) IV (16:30)
== END 2017-07-22 20:25 | disposition home or self-care (01) ==
LOC: M SDC 09:57
DX: M75.31 Calcific tendinitis of right shoulder (principal); M75.41 Impingement syndrome of right shoulder; M75.111 Incomplete rotator cuff tear or rupture of right shoulder, not specified as traumatic; K21.9 Gastro-esophageal reflux disease without esophagitis; E78.5 Hyperlipidemia, unspecified; G47.30 Sleep apnea, unspecified; N40.0 Benign prostatic hyperplasia without lower urinary tract symptoms; Z79.899 Other long term (current) drug therapy
CPT/HCPCS: 29823

== ENCOUNTER → 2017-10-25 | Outpatient (CLI) | payer BC, OTHER | LOC: M RAD 14:42 | DX: M54.30 Sciatica, unspecified side (principal) ==

== ENCOUNTER → 2018-04-25 | Outpatient (CLI) | payer BC, OTHER ==
[~2018-04-25] MED LIST changes: +ADVI200C5 PO; -CONRAY-43 43% 50ML VIAL (Q9960) As Ordered; +DOXA2TAB3 PO; +NORCOTAB PO; +PROT1TAB2 PO; +SIMV40TA2 PO; +VITA100067 PO
[2018-04-25 12:11] LABS: HEMATOCRIT 44.4 % (42.0-52.0); HEMOGLOBIN 15.1 g/dl (13.5-17.5); MEAN CORPUSCULAR HEMOGLOBIN 29.2 pg (27.0-33.0); MEAN CORPUSCULAR VOLUME 85.9 fl (80.0-96.0); PLATELET COUNT, AUTOMATED 271 10^3/uL (150-450); RED BLOOD COUNT 5.17 10^6/uL (4.30-6.10)
--- NOTE | 2018-04-25 12:31 | REP ---
Chest two views HISTORY: Hypertension Comparison: 11/22/2016 Linear densities are present in the left lower lobe consistent with scar. The right lung is clear. The heart is normal in size. The pulmonary vasculature is normal in appearance. There are old left rib fractures. A stent is present in the aorta. IMPRESSION: Left lower lobe scarring. Electronically Signed by Bo Bruce MD 04/25/2018 12:23 P
[2018-04-25 12:47] LABS: ALBUMIN 4.1 GM/DL (3.2-5.2); ALT/SGPT 30 U/L (12-78); BILIRUBIN,TOTAL 0.6 MG/DL (0.2-1.0); BLOOD UREA NITROGEN 13 MG/DL (7-18); CALCIUM LEVEL 8.9 MG/DL (8.5-10.1); CARBON DIOXIDE LEVEL 30 MEQ/L (21-32); CHLORIDE LEVEL 104 MEQ/L (98-107); CHOLESTEROL LEVEL 159 MG/DL (<200); CHOLESTEROL RISK RATIO 3.785 (<5); CREATININE FOR GFR 1.01 MG/DL (0.70-1.30); GLOMERULAR FILTRATION RATE > 60.0 (>56); GLUCOSE, FASTING 107 MG/DL (70-100); HDL CHOLESTEROL 42 MG/DL (>40); LDL CHOLESTEROL 99 MG/DL (<100); NON-HDL-C 117 MG/DL; POTASSIUM SERUM 4.1 MEQ/L (3.5-5.1); PROSTATIC SPECIFIC AG MONITOR 1.67 NG/ML (< 4.00); SODIUM LEVEL 141 MEQ/L (136-145); THYROID STIMULATING HORMONE 0.739 uIU/ML (0.358-3.740); TOTAL PROTEIN 7.6 GM/DL (6.4-8.2); TRIGLYCERIDES LEVEL 90 MG/DL (<150)
[2018-04-25 13:09] LABS: HEMOGLOBIN A1c 6.2 %
[2018-04-25 15:48] LABS: TESTOSTERONE 521 NG/DL (241-827)
--- NOTE | 2018-04-25 18:58 | ECGEPIP ---
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 Subtle diffuse ST/T-wave abnormalities Only likely change from 11/18/16 is different precordial lead placement. Electronically Signed On 04-25-2018 18:58:24 EST by Salo Dutta
== END ==
LOC: M LAB 11:04
PROVIDERS: ATTEND Family Medicine
DX: I10 Essential (primary) hypertension (principal); N40.0 Benign prostatic hyperplasia without lower urinary tract symptoms; R53.83 Other fatigue

== ENCOUNTER → 2019-06-05 | Outpatient (CLI) | payer BC, OTHER ==
[~2019-06-05] MED LIST changes: +HYDR-3715 PO; -NORCOTAB PO; -SIMV40TA2 PO; +SIMV40TA20 PO
== END ==
LOC: M LABSMTC 11:01
PROVIDERS: ATTEND Family Medicine
DX: Z11.59 Encounter for screening for other viral diseases (principal); Z20.828 Contact with and (suspected) exposure to other viral communicable diseases

== ENCOUNTER → 2020-05-31 | Outpatient (CLI) | payer BC, OTHER ==
[2020-05-31 12:10] LABS: HEMATOCRIT 43.5 % (42.0-52.0); HEMOGLOBIN 14.6 g/dl (13.5-17.5); MEAN CORPUSCULAR HEMOGLOBIN 29.7 pg (27.0-33.0); MEAN CORPUSCULAR HGB CONC 33.6 g/dl (32.0-36.5); MEAN CORPUSCULAR VOLUME 88.4 fl (80.0-96.0); PLATELET COUNT, AUTOMATED 212 10^3/uL (150-450); RED BLOOD COUNT 4.92 10^6/uL (4.30-6.10); WHITE BLOOD COUNT 5.4 10^3/uL (4.0-10.0)
[2020-05-31 12:42] LABS: ALT/SGPT 37 U/L (12-78); BILIRUBIN,TOTAL 0.6 MG/DL (0.2-1.0); BLOOD UREA NITROGEN 21 MG/DL (7-18); CARBON DIOXIDE LEVEL 28 MEQ/L (21-32); CHLORIDE LEVEL 107 MEQ/L (98-107); CHOLESTEROL LEVEL 140 MG/DL (<200); CHOLESTEROL RISK RATIO 3.589 (<5); CREATININE FOR GFR 0.86 MG/DL (0.70-1.30); GLOMERULAR FILTRATION RATE > 60.0 (>56); GLUCOSE, FASTING 111 MG/DL (70-100); HDL CHOLESTEROL 39 MG/DL (>40); LDL CHOLESTEROL 74 MG/DL (<100); NON-HDL-C 101 MG/DL; POTASSIUM SERUM 4.1 MEQ/L (3.5-5.1); PROSTATIC SPECIFIC AG MONITOR 3.08 NG/ML (< 4.00); SODIUM LEVEL 140 MEQ/L (136-145); THYROID STIMULATING HORMONE 0.784 uIU/ML (0.358-3.740); TOTAL PROTEIN 7.1 GM/DL (6.4-8.2); TRIGLYCERIDES LEVEL 137 MG/DL (<150)
[2020-05-31 13:03] LABS: HEMOGLOBIN A1c 5.8 %
[2020-05-31 14:02] LABS: TESTOSTERONE 438 NG/DL (241-827)
== END ==
LOC: M LAB 11:31
PROVIDERS: ATTEND Family Medicine
DX: R53.83 Other fatigue (principal); I10 Essential (primary) hypertension; E03.9 Hypothyroidism, unspecified

== ENCOUNTER → 2020-08-19 | Outpatient (CLI) | payer BC, OTHER ==
[~2020-08-19] MED LIST changes: +BAYE81TA10 PO; +DOXA1TAB41 PO; +IRBE150T7 PO; +MOBI4TAB PO; +NATU1TAB5 PO; +OMEG100011 PO; +PRAV40TA2 PO
== END ==
LOC: M LABSMTC 12:19
PROVIDERS: ATTEND Anesthesiology
DX: Z01.812 Encounter for preprocedural laboratory examination (principal); Z20.822 Contact with and (suspected) exposure to COVID-19

== ENCOUNTER 2020-08-24 11:31 | Day surgery (SDC) | payer BC, OTHER ==
[~2020-08-24] VITALS: Ht 185.4 cm; Wt 106.0 kg
[~2020-08-24 11:31] MED LIST changes: +NS 1,000 ML IV ONE
[2020-08-24] MEDS ORDERED: propofoL 200 MG/20 ML VIAL As Ordered ONE (12:53)
[2020-08-24] MEDS ORDERED: LIDOCAINE 2% 100MG/5ML SDV (FOR ANES.) As Ordered ONE (12:53)
[2020-08-24] MEDS ORDERED: fentaNYL 100 MCG/2 ML INJECTION (J3010) As Ordered ONE (12:53)
--- NOTE | 2020-08-24 13:22 | ROOR ---
Patient Name: Cristian Dunlap Procedure Date: 08/24/2020 1:03 PM Date of : 1960 Age: 59 Room: [facility] Gender: Male Note Status: Finalized Procedure: Upper Endoscopy + Biopsies Indications: Heartburn, Exclusion of Llanes's esophagus Providers: Mendez Thomson MD Referring MD: JAILENE MADISON MD Requesting Provider: Medicines: Monitored Anesthesia Care Complications: No immediate complications. Procedure: Pre-Anesthesia Assessment: - The heart rate, respiratory rate, oxygen saturations, blood pressure, adequacy of pulmonary ventilation, and response to care were monitored throughout the procedure. The Endoscope was introduced through the mouth, and advanced to the second part of duodenum. The upper GI endoscopy was accomplished without difficulty. The patient tolerated the procedure well. Findings: The Z-line was variable and was found 40 cm from the incisors. Multiple biopsies were obtained with cold forceps for evaluation to rule out Llanes's Esophagus randomly at the gastroesophageal junction. Localized mild inflammation characterized by congestion (edema), erosions and erythema was found in the gastric antrum. Biopsies were taken with a cold forceps for Helicobacter pylori testing. The exam of the duodenum was otherwise normal. Impression: - Z-line variable, 40 cm from the incisors. - Mucosal changes suspicious for gastritis. Biopsied. - Multiple biopsies were obtained at the gastroesophageal junction. - The examination was otherwise normal. Recommendation: - Patient has a contact number available for emergencies. The signs and symptoms of potential delayed complications were discussed with the patient. Return to normal activities tomorrow. Written discharge instructions were provided to the patient. - High fiber diet. - Discharge patient to home. - Follow an antireflux regimen. - Continue present medications. - Await pathology results. - Telephone GI clinic for pathology results in 1 week. - The findings and recommendations were discussed with the patient's family. Procedure Code(s): --- Professional --- 16904, Esophagogastroduodenoscopy, flexible, transoral; with biopsy, single or multiple Diagnosis Code(s): --- Professional --- K22.8, Other specified diseases of esophagus K31.89, Other diseases of stomach and duodenum R12, Heartburn CPT copyright 2019 [employer]. All rights reserved. The codes documented in this report are preliminary and upon airline ticket agent review may be revised to meet current compliance requirements. Mendez Thomson MD Mendez Thomson MD 08/24/2020 1:21:53 PM Electronically signed by Mendez Thomson MD Number of Addenda: 0 Note Initiated On: 08/24/2020 1:03 PM Estimated Blood Loss: Estimated blood loss: none.
--- NOTE | 2020-08-24 13:38 | ROOR ---
Patient Name: Cristian Dunlap Procedure Date: 08/24/2020 1:04 PM Date of : 1960 Age: 59 Room: [facility] Gender: Male Note Status: Finalized Procedure: Total Colonoscopy to Cecum Indications: Screening for colorectal malignant neoplasm Providers: Mendez Thomson MD Referring MD: JAILENE MADISON MD Requesting Provider: Medicines: Monitored Anesthesia Care Complications: No immediate complications. Procedure: Pre-Anesthesia Assessment: - The heart rate, respiratory rate, oxygen saturations, blood pressure, adequacy of pulmonary ventilation, and response to care were monitored throughout the procedure. The Colonoscope was introduced through the anus and advanced to the cecum, identified by appendiceal orifice and ileocecal valve. The colonoscopy was performed without difficulty. The patient tolerated the procedure well. The quality of the bowel preparation was excellent. Findings: The perianal and digital rectal examinations were normal. Non-bleeding internal hemorrhoids were found during retroflexion. The hemorrhoids were small and Grade I (internal hemorrhoids that do not prolapse). No other significant abnormalities were identified in a careful examination of the remainder of the colon. The exam was otherwise without abnormality on direct and retroflexion views. Impression: - Non-bleeding internal hemorrhoids. - The examination was otherwise normal on direct and retroflexion views. - No specimens collected. - The exam was otherwise normal to the cecum. Recommendation: - Patient has a contact number available for emergencies. The signs and symptoms of potential delayed complications were discussed with the patient. Return to normal activities tomorrow. Written discharge instructions were provided to the patient. - High fiber diet. - Continue present medications. - Repeat colonoscopy in 10 years for screening purposes. - Return to referring physician. - The findings and recommendations were discussed with the patient's family. Procedure Code(s): --- Professional --- 81497, Colonoscopy, flexible; diagnostic, including collection of specimen(s) by brushing or washing, when performed (separate procedure) Diagnosis Code(s): --- Professional --- Z12.11, Encounter for screening for malignant neoplasm of colon K64.0, First degree hemorrhoids CPT copyright 2019 [employer]. All rights reserved. The codes documented in this report are preliminary and upon transfer operator review may be revised to meet current compliance requirements. Mendez Thomson MD Mendez Thomson MD 08/24/2020 1:37:59 PM Electronically signed by Mendez Thomson MD Number of Addenda: 0 Note Initiated On: 08/24/2020 1:04 PM Estimated Blood Loss: Estimated blood loss: none.
[2020-08-24 14:06] VITALS: BP 145/92
== END 2020-08-24 14:08 | disposition home or self-care (01) ==
LOC: M OPP 11:31
PROVIDERS: ATTEND Internal Medicine Gastroenterology
DX: Z12.11 Encounter for screening for malignant neoplasm of colon (principal); K64.0 First degree hemorrhoids; K22.8 Other specified diseases of esophagus; K31.89 Other diseases of stomach and duodenum; R12 Heartburn; Z79.899 Other long term (current) drug therapy
CPT/HCPCS: 43239; 45378; 88305; J3010

== ENCOUNTER → 2021-04-21 | Outpatient (CLI) | payer BC, OTHER ==
[~2021-04-21] MED LIST changes: -NS 1,000 ML IV ONE
[2021-04-21 10:39] LABS: HEMATOCRIT 40.7 % (42.0-52.0); MEAN CORPUSCULAR HEMOGLOBIN 30.2 pg (27.0-33.0); MEAN CORPUSCULAR HGB CONC 34.4 g/dl (32.0-36.5); MEAN CORPUSCULAR VOLUME 87.7 fl (80.0-96.0); PLATELET COUNT, AUTOMATED 229 10^3/uL (150-450); RED BLOOD COUNT 4.64 10^6/uL (4.30-6.10); WHITE BLOOD COUNT 5.1 10^3/uL (4.0-10.0)
[2021-04-21 11:18] LABS: ALBUMIN 3.7 GM/DL (3.2-5.2); ALT/SGPT 35 U/L (12-78); BILIRUBIN,TOTAL 0.6 MG/DL (0.2-1.0); BLOOD UREA NITROGEN 19 MG/DL (7-18); CALCIUM LEVEL 8.9 MG/DL (8.5-10.1); CARBON DIOXIDE LEVEL 27 MEQ/L (21-32); CHLORIDE LEVEL 108 MEQ/L (98-107); CHOLESTEROL LEVEL 147 MG/DL (<200); CHOLESTEROL RISK RATIO 3.127 (<5); CREATININE FOR GFR 0.93 MG/DL (0.70-1.30); GLOMERULAR FILTRATION RATE > 60.0 (>56); GLUCOSE, FASTING 100 MG/DL (70-100); HDL CHOLESTEROL 47 MG/DL (>40); LDL CHOLESTEROL 87 MG/DL (<100); NON-HDL-C 100 MG/DL; POTASSIUM SERUM 4.2 MEQ/L (3.5-5.1); PROSTATIC SPECIFIC AG MONITOR 1.97 NG/ML (< 4.00); SODIUM LEVEL 141 MEQ/L (136-145); THYROID STIMULATING HORMONE 0.881 uIU/ML (0.358-3.740); TOTAL PROTEIN 6.8 GM/DL (6.4-8.2); TRIGLYCERIDES LEVEL 65 MG/DL (<150)
[2021-04-21 13:39] LABS: TESTOSTERONE 670 NG/DL (241-827); TOTAL 25(OH) VITAMIN D 58.7 NG/ML (30.0-100.0)
== END ==
LOC: M LAB 10:04
PROVIDERS: ATTEND Family Medicine
DX: I10 Essential (primary) hypertension (principal); R53.83 Other fatigue; E03.9 Hypothyroidism, unspecified

== ENCOUNTER → 2021-12-04 | Outpatient (CLI) | payer BC, OTHER ==
[2021-12-04 12:04] LABS: HEMATOCRIT 45.3 % (42.0-52.0); HEMOGLOBIN 14.7 g/dl (13.5-17.5); MEAN CORPUSCULAR HEMOGLOBIN 29.6 pg (27.0-33.0); MEAN CORPUSCULAR HGB CONC 32.5 g/dl (32.0-36.5); MEAN CORPUSCULAR VOLUME 91.3 fl (80.0-96.0); PLATELET COUNT, AUTOMATED 233 10^3/uL (150-450); RED BLOOD COUNT 4.96 10^6/uL (4.30-6.10); WHITE BLOOD COUNT 4.7 10^3/uL (4.0-10.0)
[2021-12-04 12:48] LABS: ALT/SGPT 38 U/L (12-78); BILIRUBIN,TOTAL 0.6 MG/DL (0.2-1.0); BLOOD UREA NITROGEN 13 MG/DL (7-18); CALCIUM LEVEL 9.4 MG/DL (8.8-10.2); CARBON DIOXIDE LEVEL 31 MEQ/L (21-32); CHLORIDE LEVEL 106 MEQ/L (98-107); CHOLESTEROL LEVEL 155 MG/DL (<200); CHOLESTEROL RISK RATIO 3.229 (<5); GLOMERULAR FILTRATION RATE > 60.0 (>49); GLUCOSE, FASTING 117 MG/DL (70-100); HDL CHOLESTEROL 48 MG/DL (>40); LDL CHOLESTEROL 86 MG/DL (<100); NON-HDL-C 107 MG/DL; POTASSIUM SERUM 4.2 MEQ/L (3.5-5.1); SODIUM LEVEL 140 MEQ/L (136-145); THYROID STIMULATING HORMONE 0.768 uIU/ML (0.358-3.740); TOTAL PROTEIN 7.3 GM/DL (6.4-8.2); TRIGLYCERIDES LEVEL 103 MG/DL (<150)
[2021-12-04 12:53] LABS: HEMOGLOBIN A1c 5.8 %
[2021-12-04 14:13] LABS: TESTOSTERONE 562 NG/DL (241-827)
== END ==
LOC: M LAB 11:03
PROVIDERS: ATTEND Family Medicine
DX: I10 Essential (primary) hypertension (principal); E11.9 Type 2 diabetes mellitus without complications; R53.83 Other fatigue
CPT/HCPCS: 36415; 80053; 80061; 83036; 84403; 84443; 85027; G0103

== ENCOUNTER → 2021-12-04 | Outpatient (CLI) | payer BC, OTHER | LOC: M LAB 10:57 | PROVIDERS: ATTEND Urology | DX: Z53.9 Procedure and treatment not carried out, unspecified reason (principal) ==

== ENCOUNTER → 2022-08-27 | Outpatient (CLI) | payer BC, OTHER | LOC: M RAD 10:06 | PROVIDERS: ATTEND Family Medicine | DX: R91.8 Other nonspecific abnormal finding of lung field (principal) ==

== ENCOUNTER → 2023-02-05 | Outpatient (CLI) | payer BC, OTHER ==
[~2023-02-05] MED LIST changes: -DOXA2TAB3 PO; +DOXA2TAB61 PO
[2023-02-05 13:09] LABS: HEMATOCRIT 42.5 % (42.0-52.0); HEMOGLOBIN 14.6 g/dl (13.5-17.5); MEAN CORPUSCULAR HGB CONC 34.4 g/dl (32.0-36.5); MEAN CORPUSCULAR VOLUME 87.4 fl (80.0-96.0); PLATELET COUNT, AUTOMATED 202 10^3/uL (150-450); RED BLOOD COUNT 4.86 10^6/uL (4.30-6.10); WHITE BLOOD COUNT 4.7 10^3/uL (4.0-10.0)
[2023-02-05 13:28] LABS: HEMOGLOBIN A1c 5.8 % (4.0-6.0)
[2023-02-05 13:36] LABS: PROSTATIC SPECIFIC AG MONITOR 1.92 NG/ML (< 4.00)
[2023-02-05 13:43] LABS: TESTOSTERONE 483 NG/DL (241-827)
[2023-02-05 14:22] LABS: ALBUMIN 3.8 G/DL (3.2-5.2); ALKALINE PHOSPHATASE 59 U/L (46-116); ALT/SGPT 34 U/L (7.0-40); AST/SGOT 18 U/L (<34); BILIRUBIN,TOTAL 0.7 MG/DL (0.3-1.2); BLOOD UREA NITROGEN 18 MG/DL (9-23); CARBON DIOXIDE LEVEL 26 MMOL/L (20-31); CHLORIDE LEVEL 106 MMOL/L (98-107); CHOLESTEROL LEVEL 152 MG/DL (<200); CREATININE FOR GFR 0.96 MG/DL (0.70-1.30); GLOMERULAR FILTRATION RATE > 60.0 (>49); GLUCOSE, FASTING 107 MG/DL (74-106); HDL CHOLESTEROL 42.2 MG/DL (>40); NON-HDL-C 109.8 MG/DL; POTASSIUM SERUM 4.2 MMOL/L (3.5-5.1); SODIUM LEVEL 140 MMOL/L (136-145); TOTAL PROTEIN 6.6 G/DL (5.7-8.2); TRIGLYCERIDES LEVEL 89 MG/DL (<150)
== END ==
LOC: M LAB 12:18
PROVIDERS: ATTEND Family Medicine
DX: I10 Essential (primary) hypertension (principal); R53.83 Other fatigue

== ENCOUNTER → 2024-01-29 | Outpatient (CLI) | payer BC ==
[~2024-01-29] MED LIST changes: +IRBE150T27 PO; -IRBE150T7 PO
== END ==
LOC: M EKG 11:30
PROVIDERS: ATTEND Family Medicine
DX: I10 Essential (primary) hypertension (principal); R53.83 Other fatigue

== ENCOUNTER → 2024-01-29 | Outpatient (CLI) | payer BC, OTHER ==
[2024-01-29 17:38] LABS: HEMATOCRIT 41.8 % (42.0-52.0); HEMOGLOBIN 13.9 g/dl (13.5-17.5); MEAN CORPUSCULAR HEMOGLOBIN 30.3 pg (27.0-33.0); MEAN CORPUSCULAR HGB CONC 33.3 g/dl (32.0-36.5); MEAN CORPUSCULAR VOLUME 91.1 fl (80.0-96.0); PLATELET COUNT, AUTOMATED 217 10^3/uL (150-450); RED BLOOD COUNT 4.59 10^6/uL (4.30-6.10); WHITE BLOOD COUNT 4.9 10^3/uL (4.0-10.0)
[2024-01-29 17:52] LABS: C REACTIVE PROTEIN QUANTITATIV < 0.40 MG/DL (<1.0)
[2024-01-29 17:53] LABS: ALBUMIN 3.8 G/DL (3.2-5.2); ALKALINE PHOSPHATASE 63 U/L (40-129); ALT/SGPT 26 U/L (7.0-40); AST/SGOT 13 U/L (<34); BILIRUBIN,TOTAL 0.7 MG/DL (0.3-1.2); BLOOD UREA NITROGEN 17 MG/DL (9-23); CALCIUM LEVEL 9.6 MG/DL (8.3-10.6); CARBON DIOXIDE LEVEL 30 MMOL/L (20-31); CHLORIDE LEVEL 106 MMOL/L (98-107); CREATININE FOR GFR 0.92 MG/DL (0.70-1.30); GLOMERULAR FILTRATION RATE > 60.0 (>49); GLUCOSE, FASTING 112 MG/DL (74-106); POTASSIUM SERUM 4.3 MMOL/L (3.5-5.1); PROSTATIC SPECIFIC AG MONITOR 2.44 NG/ML (< 4.00); SODIUM LEVEL 142 MMOL/L (136-145); TESTOSTERONE 528 NG/DL (241-827); THYROID STIMULATING HORMONE 0.837 uIU/ML (0.55-4.78); TOTAL PROTEIN 6.8 G/DL (5.7-8.2)
[2024-01-29 17:56] LABS: HEMOGLOBIN A1c 5.9 % (4.0-6.0)
== END ==
LOC: M WUC 10:48
PROVIDERS: ATTEND Family Medicine
DX: E03.9 Hypothyroidism, unspecified (principal); I10 Essential (primary) hypertension; R53.83 Other fatigue

== ENCOUNTER → 2024-09-18 | Outpatient (CLI) | payer BC ==
[~2024-09-18] MED LIST changes: -PRAV40TA2 PO; +PRAV40TA85 PO
== END ==
LOC: M SLEEP 20:00
PROVIDERS: ATTEND Nurse Practitioner Adult Health
DX: G47.33 Obstructive sleep apnea (adult) (pediatric) (principal)

== ENCOUNTER 2024-11-03 17:00 | Inpatient (IN) | payer BC ==
[~2024-11-03] VITALS: Ht 185.4 cm; Wt 107.6 kg
[2024-11-03 18:08] LABS: BASO # 0.0 10^3/uL (0.0-0.2); BASO % 0.4 % (0.0-1.0); EOS # 0.0 10^3/uL (0.0-0.5); EOS % 0.1 % (0.0-3.0); LYMPH # 1.1 10^3/uL (1.5-5.0); LYMPH % 11.0 % (24.0-44.0); MONO # 0.2 10^3/uL (0.0-0.8); MONO % 2.3 % (2.0-8.0); NEUTROPHILS # 8.2 10^3/uL (1.5-8.5); NEUTROPHILS % 85.8 % (36.0-66.0); PLATELET COUNT, AUTOMATED 232 10^3/uL (150-450)
[2024-11-03 18:12] LABS: KETONE, URINE AUTO RFX TRACE mg/dL (NEGATIVE); LEUKOCYTE ESTERASE UR AUTO RFX NEGATIVE (NEGATIVE); MUCUS, URINE RFX SMALL (NEGATIVE); NITRITE, URINE AUTO RFX NEGATIVE (NEGATIVE); RBC, URINE AUTO RFX 0 /HPF (0-3); SQUAM EPITHELIAL CELL UR AURFX 0 /HPF (0-6); WBC, URINE AUTO RFX 0 /HPF (0-3)
[2024-11-03 18:34] LABS: ALT/SGPT 37 U/L (7.0-40); AST/SGOT 28 U/L (<34); CALCIUM LEVEL 10.9 MG/DL (8.3-10.6); CARBON DIOXIDE LEVEL 30 MMOL/L (20-31); CHLORIDE LEVEL 100 MMOL/L (98-107); CREATININE FOR GFR 0.90 MG/DL (0.70-1.30); GLOMERULAR FILTRATION RATE > 90.0 (>49); POTASSIUM SERUM 4.0 MMOL/L (3.5-5.1); SODIUM LEVEL 141 MMOL/L (136-145)
[2024-11-03] MEDS ORDERED: ISOVUE-370 76% 100 ML VIAL As Ordered ONE (19:22)
[2024-11-03] MEDS: NS (Normal Saline) 0.9% 1,000 ML IV ONE (22:23)
[2024-11-03] MEDS: ONDANSETRON 4MG 2ML VIAL IV ONE (22:24)
[2024-11-03] MEDS: KETOROLAC 30 MG/ML 1 ML VIAL IV ONE (22:24)
[2024-11-03] MEDS ORDERED: MAALOX 30 ML SUSP *UDC PO PRN (23:05)
[2024-11-03] MEDS ORDERED: MOM 30 ML SUSPENSION UDC PO PRN (23:05)
[2024-11-03] MEDS ORDERED: ONDANSETRON 4MG 2ML VIAL IV PRN (23:05)
[2024-11-04] MEDS: LABETALOL 100 MG/20 ML VIAL IV ONE
[2024-11-04] MEDS: LR 1,000 ML IV SCH (01:24)
[2024-11-04 01:35] VITALS: BP 170/90; TEMP 98.6; O2SAT 98
[2024-11-04] MEDS ORDERED: ONDANSETRON 4MG 2ML VIAL IV PRN (02:00)
[2024-11-04 04:19] VITALS: BP 166/95; TEMP 98.4; O2SAT 94
[2024-11-04 06:25] LABS: PLATELET COUNT, AUTOMATED 220 10^3/uL (150-450)
[2024-11-04 07:44] LABS: ALT/SGPT 27 U/L (7.0-40); AST/SGOT 20 U/L (<34); CALCIUM LEVEL 10.0 MG/DL (8.3-10.6); CARBON DIOXIDE LEVEL 29 MMOL/L (20-31); CHLORIDE LEVEL 104 MMOL/L (98-107); CREATININE FOR GFR 0.93 MG/DL (0.70-1.30); GLOMERULAR FILTRATION RATE > 90.0 (>49); MAGNESIUM LEVEL 2.0 MG/DL (1.8-2.4); POTASSIUM SERUM 3.6 MMOL/L (3.5-5.1); SODIUM LEVEL 147 MMOL/L (136-145)
[2024-11-04] MEDS ORDERED: MELO7.5T35 PO (08:26)
[2024-11-04] MEDS ORDERED: HOME MED LIST COMPLETE! XX SCH (08:30)
[2024-11-04] MEDS: DOCUSATE SODIUM 100 MG CAPSULE PO SCH (08:51)
[2024-11-04] MEDS: KCL 20MEQ IN 0.45NS 1000ML 1,000 ML IV SCH (08:51)
[2024-11-04] MEDS: HEPARIN SOD 5000 UNITS/ML 1 ML VIAL/SYRINGE SC SCH (08:51)
[2024-11-04] MEDS: PANTOPRAZOLE 40MG VIAL IV SCH (08:51)
[2024-11-04 11:32] VITALS: BP 153/93; TEMP 97.5; O2SAT 94
[2024-11-04] MEDS: cloNIDine HCL 0.3 MG/24 HR PATCH TOP SCH (13:24)
[2024-11-04] MEDS: BISACODYL ENEMA 10 MG/30 ML PR ONE (15:42)
[2024-11-04 16:43] LABS: CALCIUM LEVEL 8.8 MG/DL (8.3-10.6); CARBON DIOXIDE LEVEL 30.0 MMOL/L (20-31); CHLORIDE LEVEL 106.0 MMOL/L (98-107); CREATININE FOR GFR 0.96 MG/DL (0.70-1.30); GLOMERULAR FILTRATION RATE 88.8 (>49); POTASSIUM SERUM 3.7 MMOL/L (3.5-5.1); SODIUM LEVEL 145.0 MMOL/L (136-145)
[2024-11-04 18:21] VITALS: BP 152/93
[2024-11-04] MEDS: ACETAMINOPHEN 325 MG TAB PO PRN (18:30)
[2024-11-04 20:02] VITALS: BP 146/83; TEMP 97.7; O2SAT 93
[2024-11-05 04:21] VITALS: BP 148/79; TEMP 97.5; O2SAT 96
[2024-11-05 11:44] VITALS: BP 130/74; TEMP 97.5; O2SAT 97
[2024-11-05] MEDS: amLODIPine 10 MG TAB PO ONE (11:44)
[2024-11-05] MEDS: MIRALAX *UNIT DOSE* 17 GM PACKET PO SCH (14:17)
[2024-11-05 20:51] VITALS: BP 133/74; TEMP 97.7; O2SAT 98
[2024-11-06 04:00] VITALS: BP 144/79; TEMP 97.5; O2SAT 96
[2024-11-06] MEDS ORDERED: E-Z-PAQUE 96% w/w SUSP 176 GM BTL As Ordered ONE (08:45)
[2024-11-06 12:00] VITALS: BP 145/76; TEMP 97.5; O2SAT 99
[2024-11-06] MEDS: DICLOFENAC EPOLAMINE 1.3% PATCH TOP SCH (12:40)
[2024-11-06] MEDS: amLODIPine 10 MG TAB PO SCH (12:41)
[2024-11-06] MEDS: HYDROMORPHONE HCL 0.5 MG/0.5 ML SYRINGE IV ONE (12:51)
[2024-11-06] MEDS: KETOROLAC 30 MG/ML 1 ML VIAL IV ONE (12:53)
[2024-11-06] MEDS: ACETAMINOPHEN *IV* 1,000 MG in IV 1 EA IV ONE (12:53)
[2024-11-06 12:55] LABS: CALCIUM LEVEL 8.4 MG/DL (8.3-10.6); CARBON DIOXIDE LEVEL 26 MMOL/L (20-31); CHLORIDE LEVEL 103 MMOL/L (98-107); CREATININE FOR GFR 0.82 MG/DL (0.70-1.30); GLOMERULAR FILTRATION RATE > 90.0 (>49); MAGNESIUM LEVEL 2.0 MG/DL (1.8-2.4); POTASSIUM SERUM 3.8 MMOL/L (3.5-5.1); SODIUM LEVEL 140 MMOL/L (136-145)
[2024-11-06] MEDS: LACTULOSE 20 GM/30 ML SYRUP UDC PO ONE (13:34)
[2024-11-06] MEDS: LIDOCAINE 5% OINT 30 GM TUBE TOP SCH (16:00)
[2024-11-06] MEDS: DOXAZOSIN MESYLATE 1 MG TAB PO SCH (17:18)
[2024-11-06 20:28] VITALS: BP 122/60; TEMP 97; O2SAT 96
[2024-11-07 03:55] VITALS: BP 117/61; TEMP 97.5; O2SAT 96
[2024-11-07 04:15] VITALS: BP 136/75
[2024-11-07] MEDS: SENNOSIDES/DOCUSATE SODIUM 8.6 MG/50MG TAB PO ONE (10:12)
[2024-11-07] MEDS ORDERED: BISA10SU PR (10:14)
[2024-11-07] MEDS ORDERED: MIRA33506 PO ×2 (10:14→10:30)
[2024-11-07] MEDS ORDERED: COLA100C5 PO (10:14)
[2024-11-07] MEDS ORDERED: LACT20EL PO (10:30)
[2024-11-07 12:00] VITALS: BP 134/79; TEMP 97.2; O2SAT 100
[2024-11-07 12:01] VITALS: BP 140/75
[2024-11-07] MEDS: IRBESARTAN 150 MG TAB PO SCH (12:01)
[2024-11-07] MEDS: LACTULOSE 20 GM/30 ML SYRUP UDC PO ONE (12:01)
[2024-11-07] MEDS: PRAVASTATIN 20 MG TAB PO SCH (12:01)
[2024-11-07] MEDS ORDERED: BISACODYL 10 MG SUPP PR SCH (21:00)
[2024-11-08] MEDS ORDERED: PANTOPRAZOLE 40MG TAB PO SCH (09:00)
== END 2024-11-07 19:05 | disposition home or self-care (01) | DRG 247 ==
LOC: M ED 17:00 → M ED INP 23:03 → M MSPAV 11-04 01:09
PROVIDERS: ADMIT Student in an Organized Health Care Education/Training Program; ATTEND General Practice
DX: K56.51 Intestinal adhesions [bands], with partial obstruction (principal); E87.0 Hyperosmolality and hypernatremia; E84.19 Cystic fibrosis with other intestinal manifestations; E78.5 Hyperlipidemia, unspecified; G47.33 Obstructive sleep apnea (adult) (pediatric); I10 Essential (primary) hypertension; R73.9 Hyperglycemia, unspecified; N40.0 Benign prostatic hyperplasia without lower urinary tract symptoms; Z90.49 Acquired absence of other specified parts of digestive tract; Z79.82 Long term (current) use of aspirin; Z79.899 Other long term (current) drug therapy; Z87.820 Personal history of traumatic brain injury; E66.811 Obesity, class 1; Z68.31 Body mass index [BMI] 31.0-31.9, adult